=== PATIENT | female | born 1935 | race Hispanic/Latino ===

== ENCOUNTER 2018-03-11 07:35 | Outpatient (CLI) | payer MEDICARE, MEDICAID ==
[2018-03-11 09:45] LABS: Bilirubin Negative (Negative); Blood, Urine Negative (Negative); Clarity CLEAR (Clear); Glucose, Urine (Dipstick) Negative (Negative); Leukocyte Small (Negative); Nitrite Negative (Negative); Protein, Urine (Dipstick) Negative (Neg-Trace); Urobilinogen 0.2 mg/dL (0.2-1.0); pH, Urine 5.5 (5.0-9.0)
[2018-03-11 09:46] LABS: Bacteria/HPF 3+ HPF (None Seen); Hyaline Casts/LPF 0-3 HYALINE CAST LPF (0-3 Hyaline); Pathc Cast-AUWi Flag 0.14 (0-2.49); RBC/HPF 0-3 HPF (0-3); Squamous Epithelial None Seen HPF (0-3)
== END 2018-03-11 07:36 | disposition home or self-care (01) ==
LOC: LABBT 07:35
PROVIDERS: ATTEND Orthopaedic Surgery
DX: Z01.818 Encounter for other preprocedural examination (principal); M17.12 Unilateral primary osteoarthritis, left knee
CPT/HCPCS: 81001; 87077; 87081; 87086; 93005; 93010

== ENCOUNTER 2018-03-22 07:05 | Inpatient (IN) | payer MEDICARE, MEDICAID ==
--- NOTE | 2018-03-18 09:40 | HP ---
HISTORY OF PRESENT ILLNESS: The patient is an 83-year-old female with a long history of progressive degenerative arthritis of the left knee, which have become much worse over the past 5-6 months. Ther e has been no injury. She has had progressive symptoms despite rest, restriction of activities, use of anti-inflammatory medication. Pain is now interfering with day to day activities, including walki ng, getting dressed, and sleeping. She has also had previous injections without relief. She has had previous right total [place] [address] Sandoval with good results. PAST MEDICAL HISTORY: The patient has a history of high blood pressure and high cholesterol. She wa s found on preoperative laboratory to have a urinary tract infection secondary to E. coli and has bee n treated with Macrodantin. CURRENT MEDICATIONS: Include amitriptyline, amlodipine, benazepril, Colace, hydrocodone, pravastatin , tramadol. ALLERGIES: She has no known allergies. FAMILY HISTORY/SOCIAL HISTORY/REVIEW OF SYSTEMS: Otherwise unremarkable. The patient lives with her son. PHYSICAL EXAMINATION: GENERAL: Reveals a healthy elderly female. HEENT: Unremarkable. NECK: Supple. CHEST: Clear. HEART: Regular rate and rhythm. ABDOMEN: Soft, nontender. PELVIC/RECTAL/BREAST: Exams are deferred. EXTREMITIES: Pertinent findings are related to the left knee. There is moderate varus deformity. T here is no effusion. There is tenderness and crepitus over the medial joint line. There is 1+ valgu s laxity at 30 degrees of flexion. Range of motion is 5-115 degrees. Pulses are 2+. There is a lef t antalgic gait. Neurovascular exam is intact. LABORATORY AND X-RAY FINDINGS: X-rays of the left knee performed at [facility] reveal bone on bon e collapse medially. IMPRESSION: 1. Degenerative arthritis, left knee. 2. History of hypertension. 3. History of urinary tract infection present prior to admission secondary to Escherichia coli, geraldine nelly with Macrodantin. PLAN: Left total knee replacement. The nature of the surgery, length of recovery, and potential com plications such as infection, loss of motion, incomplete relief, delayed wound healing, neurovascular injury, thromboembolic phenomena, possible transfusion, and need for revision have been discussed in detail with the patient and her family.
[2018-03-22] MEDS ORDERED: Fentanyl 100 MCG/2 ML VIAL ONE ×3 (08:15→12:07)
[2018-03-22] MEDS ORDERED: Midazolam HCl 2 mg/2 ml Vial ONE (08:15)
[2018-03-22] MEDS ORDERED: CEFAZOLIN/Water 2 GM/20 ML SYRINGE ONE (08:16)
[2018-03-22] MEDS ORDERED: Sodium Chloride 0.9% 100 ML ONE (08:17)
[2018-03-22] MEDS ORDERED: Promethazine HCl 25 MG/ML VIAL IM PRN ×2 (09:13→10:15)
[2018-03-22] MEDS ORDERED: Ondansetron HCl/PF 4 MG/2 ML Vial IVP PRN ×3 (09:13→12:54)
[2018-03-22] MEDS ORDERED: Fentanyl 100 MCG/2 ML VIAL IV PRN (09:13)
[2018-03-22] MEDS ORDERED: Zolpidem Tartrate 5 MG TAB PO PRN ×2 (09:13→12:54)
[2018-03-22] MEDS ORDERED: traMADol HCl 50 MG TAB PO PRN ×3 (09:13→12:54)
[2018-03-22] MEDS ORDERED: HYDROcodone/Acetaminophen 7.5/325 mg Tablet PO PRN (09:14)
[2018-03-22] MEDS ORDERED: Bupivacaine/Epinephrine 0.25% 30 ML VIAL ONE (09:18)
[2018-03-22] MEDS ORDERED: Promethazine HCl 25 MG/ML VIAL SLOW IVP PRN ×2 (10:15→12:54)
[2018-03-22] MEDS ORDERED: Ropivacaine 0.5% HCl/PF (150 MG/30 ML VIAL) ONE (11:09)
[2018-03-22] MEDS ORDERED: Bupivacaine 0.25% HCL 30 ML VIAL ONE (11:09)
[2018-03-22] MEDS ORDERED: Tranexamic Acid 1,000 MG in Sodium Chloride 0.9% 100 ML IVPB SCH (11:45)
--- NOTE | 2018-03-22 11:48 | OP ---
DATE OF PROCEDURE: 03/22/2018 PREOPERATIVE DIAGNOSIS: End-stage tricompartmental osteoarthritis, left knee. POSTOPERATIVE DIAGNOSIS: End-stage tricompartmental osteoarthritis, left knee. OPERATIVE PROCEDURE: Cemented cruciate-sparing computer-assisted navigated left total knee arthropla sty. SURGEON: Jacek Epstein M.D. HR PAYROLL COORDINATOR: Omar Motta PA-C. ANESTHESIA: General via laryngeal mask airway augmented with indwelling femoral block, single shot s ciatic block. 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 TOURNIQUET TIME: 68 minutes. ESTIMATED BLOOD LOSS: Less than 100. COMPONENTS USED: [employer] Triathlon primary size 3 cemented cruciate-sparing femoral comp onent, size 3 cemented primary universal tibial baseplate, a 9 mm polyethylene fixed bearing insert, and 27 mm patellar button. INDICATIONS FOR SURGERY: Ms. Conn is an 83-year-old female who has had progressive left kn ee pain amplified with standing and walking for the last 5-7 years. She has failed conservative carter gement and elected to proceed with total knee arthroplasty as a definitive treatment of her pain. PROCEDURE IN DETAIL: After informed consent was obtained in the preoperative holding area. The brennen ent was taken to the operative suite where general anesthesia was induced. Once adequate level of ge neral anesthesia was obtained, the patient was positioned and a well-padded tourniquet was placed jennifer und the left proximal thigh. The left lower extremity was then prepped and draped in the usual steri le fashion. Prior to exsanguination, a time out was called and all members of the surgical team agre ed upon site, surgeon, and patient. The extremity was then exsanguinated and the tourniquet was rais ed. A midline longitudinal incision was then made directly over the patella extending two fingerbrea dths above the superior pole of the patella and two fingerbreadths inferior to the inferior patellar pole of the patella. Deeper subcutaneous layers were dissected sharply and local bleeding was contro lled with Bovie electrocautery. A quad tendon longitudinal split was then made sharply and a median parapatellar arthrotomy was carried out both sharp and with Bovie electrocautery, carried down to one fingerbreadth medial to the tibial tubercle. The knee was then placed into flexion and the patella was everted nicely, and a copious fat pad ectomy was performed allowing for greater exposure of the t ibia. The computer-assisted distal femoral fiducial was then placed and pinned firmly, and the dista l femoral cutting guide was pinned firmly into place. The oscillating saw was then used to remove th e appropriate amount of bone. The 4-in-1 cutting block was then placed on the distal femur and the o scillating saw was used to remove the appropriate amount of bone off of the anterior, posterior, and chamfer cuts. After completion of bone cuts, the anterior cruciate ligament was resected sharply and the posterior cruciate ligament retractor was placed and the tibia was subluxed for better exposure. Partial meniscectomies were carried out, and the tibial computer-assisted fiducial was pinned, and the cutting guide was placed. Oscillating saw was then used to remove the bone with Hohmann retracto rs used to take care and protect the collateral ligaments. After the tibial resection was performed, a laminar chief investigator was placed in between the freshened bone cuts. The knee placed at 90 degrees and further bilateral meniscectomies were carried out, and the curved osteotome and curettage was used t o remove any excess bone spurs in the posterior compartment. The trial femoral component, tibial bas eplate were placed with the appropriate polyethylene trial insert with an appropriate polyethylene sp acer and patellar button. The knee was taken through full range of motion with flexion and extension from 0-90 degrees and patellar broach squarely in the trochlea without any squinting or subluxation noted. The knee was also stable to varus and valgus stressing at 0, 15, 45, and 90 degrees of flexio n. The drawer was negative. All trial components were then removed and the keel punch was used to p rovide the appropriate defect in the tibia with a mallet. The freshened bone cuts were copiously irr igated with pulsatile lavage of about 1-1/2 liters to remove all excess debris. The freshened bone c uts were then dried and with suction and lap sponge. The knee was placed in flexion and retractors w ere placed to provide access to all bone cuts. Tobramycin impregnated methyl methacrylate cement was then placed on the freshened bone cuts and implants which were malleted firmly into place. Curettag e and [place] elevators were used to remove any excess bone cement. The knee was placed into full exte nsion and the patellar button was placed under compression, and the cement was allowed to cure. Once completed, the components were again taken through full range of motion and copious irrigation of th e knee was carried out with another liter of normal saline. All components were inspected fully with full range of motion and varus and valgus stressing. There was no laxity noted and full extension wa s observed clinically. Primary closure was accomplished with #2 interrupted Vicryl stitch of the art hrotomy defect. This was oversewn with a #2 running Quill barbed stitch. The subcutaneous layer was then closed with a running 0 barbed Monocryl stitch and skin closure accomplished with a running sub cuticular 3-0 Monocryl barbed Quill stitch and augmented with cement on the skin. Tourniquet was low ered. Good spontaneous return of distal pulses was noted clinically and a sterile dressing was appli ed to the incision. The procedure was terminated without any complications. The patient was awakene d in the operative suite and taken to the recovery room in stable condition.
[2018-03-22] MEDS ORDERED: Promethazine HCl 25 MG/ML VIAL ONE (12:00)
[2018-03-22] MEDS ORDERED: Multivitamin W/ Minerals 1 TAB PO SCH ×2 (12:54→13:15)
[2018-03-22] MEDS ORDERED: diphenhydrAMINE 25 MG CAP PO PRN (12:54)
[2018-03-22] MEDS ORDERED: Ferrous Gluconate 324 MG TAB PO SCH ×2 (12:54→13:00)
[2018-03-22] MEDS ORDERED: Fentanyl 100 MCG/2 ML VIAL SLOW IVP PRN (12:54)
[2018-03-22] MEDS ORDERED: HYDROcodone/Acetaminophen 5/325 mg Tablet PO PRN ×2 (12:54)
[2018-03-22] MEDS ORDERED: Lisinopril 20 MG TAB PO SCH ×2 (12:54→13:00)
[2018-03-22] MEDS ORDERED: Aspirin 81 mg Enteric Coated Tablet PO SCH ×2 (12:54→13:00)
[2018-03-22] MEDS ORDERED: Non-Formulary Item 1 EACH (Hydrochlorothiazide [Hydrochlorothiazide] 12.5 MG) PO SCH (12:54)
[2018-03-22] MEDS ORDERED: Acetaminophen 325 MG TAB PO PRN (12:54)
[2018-03-22] MEDS ORDERED: Senokot S 8.6-50 MG TAB PO SCH ×2 (12:54→13:15)
[2018-03-22] MEDS ORDERED: Hydrochlorothiazide 25 MG TAB PO SCH (13:15)
--- NOTE | 2018-03-22 13:30 | RAD ---
TWO VIEWS OF THE LEFT KNEE: DATE: 03/22/18. PROVIDED CLINICAL HISTORY: Postop. FINDINGS: No comparisons. Postoperative changes of left total knee arthroplasty are demonstrated. Postoperati ve soft tissue gas is seen. No evidence for a fracture or other acute osseous abnormality. IMPRESSION: As above. POS: OFF
[2018-03-22] MEDS ORDERED: Lidocaine 1% PF 5 ML VIAL ONE (14:34)
[2018-03-22] MEDS ORDERED: Ondansetron HCl/PF 4 MG/2 ML Vial ONE (14:34)
[2018-03-22] MEDS ORDERED: PROPOFOL 200 MG/20 ML VIAL ONE (14:34)
[2018-03-22] MEDS ORDERED: PHENYLEPHRINE-NS 100 MCG/ML 10 ML SYRINGE ONE (14:34)
[2018-03-22] MEDS ORDERED: hydrALAZINE 25 MG TAB PO PRN (15:51)
[2018-03-22] MEDS ORDERED: CEFAZOLIN/Water 2 GM/20 ML SYRINGE SLOW IVP SCH (16:00)
[2018-03-22] MEDS: Sodium Chloride 0.9% 1,000 ML IV SCH ×2 (18:06→23:18)
[2018-03-22] MEDS: CEFAZOLIN/Water 2 GM/20 ML SYRINGE SLOW IVP SCH (18:06)
[2018-03-22] MEDS: traMADol HCl 50 MG TAB PO PRN (18:19)
--- NOTE | 2018-03-22 18:42 | CON ---
DATE OF CONSULTATION: 03/22/2018 PRIMARY CARE PHYSICIAN: Callum Hannon MD at [facility] REASON FOR ADMISSION: Elective left total knee replacement. REASON FOR CONSULTATION: Aid in medical management. HISTORY OF PRESENT ILLNESS: Ms. Senia James is a pleasant 83-year-old female who has advanced os teoarthritis of the left knee. She has failed outpatient and conservative treatment for this and has elected to have a left total knee replacement. She is currently postop and has some pressure sensat ion in the leg, but otherwise no complaints. She denies any chest pain or shortness of breath. No h eadaches or dizziness, no lightheadedness. REVIEW OF SYSTEMS: All systems were reviewed and are negative. PAST MEDICAL HISTORY: Significant for hypertension and hypercholesterolemia. PAST SURGICAL HISTORY: She has had a right total knee replacement before as well as glaucoma. ALLERGIES: No known drug allergies. SOCIAL HISTORY: She is a nonsmoker, nondrinker. FAMILY HISTORY: Negative for any inheritable diseases. CURRENT MEDICATIONS: Include, lisinopril 20 mg daily as well as hydrochlorothiazide 12.5 mg daily. PHYSICAL EXAMINATION: GENERAL: She is alert and oriented. She was a bit sleepy. VITAL SIGNS: Blood pressure was 102/66, heart rate 92, respiratory rate of 18, temperature is 97.4. HEENT: Her pupils are equal, round, and reactive. Extraocular muscles are intact. Her sclerae are anicteric. Throat no erythema, no exudates. NECK: No adenopathy, no bruits. LUNGS: Clear to auscultation. There is no wheezing, no rales. CARDIOVASCULAR: She has a normal S1, S2. I do not appreciate an S3 or S4. No murmurs, clicks, or r ubs. ABDOMEN: Soft, positive for bowel sounds. No rebound or guarding. EXTREMITIES: There is no edema. NEUROLOGIC: She is grossly nonfocal. LABORATORY RESULTS: She had lab work done on 03/17/2018. This was reviewed and was essentially nega tive except she had a slightly elevated BUN and creatinine with a BUN being 35 and the creatinine was 1.3. ASSESSMENT AND PLAN: This is a pleasant 83-year-old female who is being admitted for an elective lef t total knee replacement. She is currently postop and has essentially no complaints. Her most recen t blood pressure was normal. I would agree with restarting her antihypertensive medications. We pasha l place her on p.r.n. medication as needed and her pain seems to be adequately controlled and we will be happy to follow along with you.
[2018-03-22] MEDS: Aspirin 81 mg Enteric Coated Tablet PO SCH (19:59)
[2018-03-22] MEDS: Senokot S 8.6-50 MG TAB PO SCH (19:59)
[2018-03-22] MEDS: Ferrous Gluconate 324 MG TAB PO SCH (20:00)
[2018-03-22] MEDS: Bupivacaine 0.5% 50 ML in Sodium Chloride 0.9% 50 ML NERVE BLCK SCH (20:04)
[2018-03-22] MEDS ORDERED: Vancomycin HCl 1 GM in Premix Bag 1 BAG IVPB SCH (21:00)
[2018-03-23] MEDS: CEFAZOLIN/Water 2 GM/20 ML SYRINGE SLOW IVP SCH (02:44)
[2018-03-23 06:08] LABS: Hemoglobin 11.2 g/dL (12.0-16.0); Mean Corpuscular HGB CONC 33.9 g/dL (32.0-36.0); Mean Corpuscular Hemoglobin 30.7 pg (27.0-31.0); Mean Corpuscular Volume 90.7 fL (78.0-98.0); Mean Platelet Volume 8.9 fL (7.4-10.4); Platelet Count 121 thou/uL (130-400); Red Blood Cell (RBC) Count 3.64 mill/uL (4.20-5.40); White Blood Cell (WBC) Count 7.1 thou/uL (4.8-10.8)
[2018-03-23 07:11] VITALS: BMI 24.4
[2018-03-23] MEDS ORDERED: Lisinopril 20 MG TAB PO SCH (09:00)
[2018-03-23] MEDS: Sodium Chloride 0.9% 1,000 ML IV SCH ×2 (09:50→18:53)
[2018-03-23] MEDS: traMADol HCl 50 MG TAB PO PRN (10:07)
[2018-03-23] MEDS: Aspirin 81 mg Enteric Coated Tablet PO SCH ×2 (10:09→21:32)
[2018-03-23] MEDS: Multivitamin W/ Minerals 1 TAB PO SCH (10:09)
[2018-03-23] MEDS: Hydrochlorothiazide 25 MG TAB PO SCH (10:09)
[2018-03-23] MEDS: Senokot S 8.6-50 MG TAB PO SCH ×2 (10:10→21:31)
[2018-03-23] MEDS: Ferrous Gluconate 324 MG TAB PO SCH ×2 (10:10→21:31)
[2018-03-23] MEDS: Bupivacaine 0.5% 50 ML in Sodium Chloride 0.9% 50 ML NERVE BLCK SCH (10:30)
--- NOTE | 2018-03-23 10:59 | PRG ---
DATE OF SERVICE: 03/23/2018 SUBJECTIVE: Senia is an 83-year-old female postop day #1 from a left total knee arthroplast y. Her pain is relatively well controlled. She has no complaints currently. OBJECTIVE: VITAL SIGNS: Temperature 99.0, pulse 92, respiratory rate 18, blood pressure 138/84. GENERAL: She is alert and oriented to person, place, time, and situation. Grossly nonfocal appropri ate with examiner. EXTREMITIES: Her left lower extremity is neurovascularly intact. There is no strike through at the incision. Hemoglobin and hematocrit 11.2 and 33.0. ASSESSMENT: 1. An 83-year-old female postop day #1 left total knee arthroplasty, doing well. 2. Mild postoperative hemorrhagic anemia. PLAN: Continue current care and discharge home tomorrow.
[2018-03-23] MEDS: HYDROcodone/Acetaminophen 7.5/325 mg Tablet PO PRN ×2 (13:12→21:36)
--- NOTE | 2018-03-23 14:20 | PDOC.PN ---
- Subjective Encounter Start Date: 03/23/18 Encounter Start Time: 11:00 Subjective: pt up in chair with family at bedside complains of pain to her left knee - Objective Vital Signs & Weight: Vital Signs (12 hours) Temp Pulse Resp BP BP Pulse Ox 03/23/18 13:14 101 H 174/97 H 03/23/18 12:37 100 191/78 H 03/23/18 11:50 98.2 F 100 16 185/81 H 93 L 03/23/18 10:10 138/84 03/23/18 08:10 99.0 F 92 18 138/84 94 L 03/23/18 07:12 98.7 F 95 17 94 L 03/23/18 03:23 98.7 F 95 17 107/57 L 94 L Weight Admit Weight 125 lb Weight 125 lb I&O: 03/22/18 03/23/18 03/24/18 06:59 06:59 06:59 Intake Total 1050 Output Total 1050 Balance 0 Result Diagrams: 03/23/18 05:41 Phys Exam - Physical Examination HEENT: PERRLA, moist MMs, sclera anicteric, TM's clear, oral pharynx no lesions , 2+ tonsils Neck: no nodes, no JVD, supple, full ROM Respiratory: no wheezing, no rales, no rhonchi, wheezing present, clear to auscultation bilateral Cardiovascular: RRR, no significant murmur, no rub, gallop, irregular Gastrointestinal: soft, non-tender, no distention, positive bowel sounds left knee dressing intact, pedal pulse present to lower ext Neurological: non-focal, normal sensation, moves all 4 limbs Dx/Plan (1) Hypertension Code(s): I10 - ESSENTIAL (PRIMARY) HYPERTENSION Status: Acute (2) Status post left knee replacement Code(s): Z96.652 - PRESENCE OF LEFT ARTIFICIAL KNEE JOINT Status: Acute - Plan will increase her lisinopril to bid. pt is complainig of pain elevated bp -: most likely due to pain. pt on stool softners * . Review of Systems - Review of Systems Eyes: negative: Pain, Vision Change, Conjunctivae Inflammation, Eyelid Inflammation, Redness, Other ENT: negative: Ear Pain, Ear Discharge, Nose Pain, Nose Discharge, Nose Congestion, Mouth Pain, Mouth Swelling, Throat Pain, Throat Swelling, Other Respiratory: negative: Cough, Dry, Shortness of Breath, Hemoptysis, SOB with Excertion, Pleuritic Pain, Sputum, Wheezing Cardiovascular: negative: chest pain, palpitations, orthopnea, paroxysmal nocturnal dyspnea, edema, light headedness, other Gastrointestinal: negative: Nausea, Vomiting, Abdominal Pain, Diarrhea, Constipation, Melena, Hematochezia, Other Genitourinary: negative: Dysuria, Frequency, Incontinence, Hematuria, Retention , Other Musculoskeletal: Other (knee pain) - Medications/Allergies Allergies/Adverse Reactions: Allergies Allergy/AdvReac Type Severity Reaction Status Date / Time No Known Allergies Allergy Verified 03/11/18 08:32 Medications: Current Medications Acetaminophen (Tylenol) 650 mg PO Q4H PRN PRN Reason: SANTIAGO/ T > 101F; Mild Pain (1-3) Hydrocodone Bitart/Acetaminophen ([place] 7.5/325) 1 tab PO Q4H PRN PRN Reason: Mild Pain (1-3) Last Admin: 03/23/18 13:12 Dose: 1 tab Hydrocodone Bitart/Acetaminophen ([place] 7.5/325) 2 tab PO Q4H PRN PRN Reason: Moderate Pain (4-6) Aspirin (Ecotrin) 81 mg PO BID [facility] Last Admin: 03/23/18 10:09 Dose: 81 mg Diphenhydramine HCl (Benadryl) 25 mg PO Q6H PRN PRN Reason: Itching Fentanyl (Sublimaze) 50 mcg IV Q1H PRN PRN Reason: BREAKTHROUGH PAIN Ferrous Gluconate (Fergon) 324 mg PO BID [facility] Last Admin: 03/23/18 10:10 Dose: 324 mg Hydralazine HCl (Apresoline) 25 mg PO TID PRN PRN Reason: SBP Greater Than 170 Last Admin: 03/23/18 12:37 Dose: 25 mg Hydrochlorothiazide (Hydrochlorothiazide) 12.5 mg PO DAILY [facility] Last Admin: 03/23/18 10:09 Dose: 12.5 mg Bupivacaine HCl 50 ml/ Sodium (Chloride) 100 mls @ 0 mls/hr NERVE BLCK INF [facility] PRN Reason: As Directed Last Admin: 03/23/18 10:30 Dose: 100 mls Sodium Chloride (Normal Saline 0.9%) 1,000 mls @ 100 mls/hr IV .Q10H [facility] Last Admin: 03/23/18 09:50 Dose: Not Given Iron/Minerals/Multivitamins (Theragran M) 1 tab PO DAILY [facility] Last Admin: 03/23/18 10:09 Dose: 1 tab Lisinopril (Zestril) 20 mg PO BID [facility] Ondansetron HCl (Zofran) 4 mg IVP Q6H PRN PRN Reason: Nausea/Vomiting Promethazine HCl (Phenergan) 12.5 mg IM Q4H PRN PRN Reason: Nausea Promethazine HCl (Phenergan) 12.5 mg SLOW IVP Q4H PRN PRN Reason: Nausea/Vomiting Senna/Docusate Sodium (Senokot S) 2 tab PO BID [facility] Last Admin: 03/23/18 10:10 Dose: Not Given Sodium Chloride (Flush - Normal Saline) 10 ml IVF PRN PRN PRN Reason: Saline Flush Sodium Chloride (Flush - Normal Saline) 10 ml IVF Q12HR [facility] Last Admin: 03/23/18 10:12 Dose: 10 ml Tramadol HCl (Ultram) 50 mg PO Q6H PRN PRN Reason: Mild Pain (1-3) Last Admin: 03/23/18 10:07 Dose: 50 mg Tramadol HCl (Ultram) 100 mg PO Q6H PRN PRN Reason: Moderate Pain 4-6 Zolpidem Tartrate (Ambien) 5 mg PO HSPRN PRN PRN Reason: Insomnia
[2018-03-23] MEDS: Lisinopril 20 MG TAB PO SCH (21:31)
[2018-03-24] MEDS: Bupivacaine 0.5% 50 ML in Sodium Chloride 0.9% 50 ML NERVE BLCK SCH (00:21)
[2018-03-24] MEDS: Sodium Chloride 0.9% 1,000 ML IV SCH ×2 (03:21→09:31)
[2018-03-24] MEDS: HYDROcodone/Acetaminophen 7.5/325 mg Tablet PO PRN (08:31)
[2018-03-24] MEDS: Senokot S 8.6-50 MG TAB PO SCH (08:32)
[2018-03-24] MEDS: Hydrochlorothiazide 25 MG TAB PO SCH (08:32)
[2018-03-24] MEDS: Ferrous Gluconate 324 MG TAB PO SCH (08:32)
[2018-03-24] MEDS: Multivitamin W/ Minerals 1 TAB PO SCH (08:32)
[2018-03-24] MEDS: Lisinopril 20 MG TAB PO SCH (08:33)
[2018-03-24] MEDS: Aspirin 81 mg Enteric Coated Tablet PO SCH (08:33)
[2018-03-24 12:07] VITALS: BP 133/86; TEMP 98.1
--- NOTE | 2018-03-24 16:46 | PDOC.PN ---
- Subjective Encounter Start Date: 03/24/18 Encounter Start Time: 11:45 Subjective: pt up in bed feels much better today - Objective Vital Signs & Weight: Vital Signs (12 hours) Temp Pulse Resp BP BP Pulse Ox 03/24/18 12:06 98.1 F 84 20 133/86 94 L 03/24/18 08:33 147/80 H 03/24/18 08:30 97.4 F L 92 14 95 03/24/18 08:05 97.4 F L 92 14 147/80 H 95 Weight Admit Weight 125 lb Weight 125 lb I&O: 03/23/18 03/24/18 03/25/18 06:59 06:59 06:59 Intake Total 1050 1140 0 Output Total 1050 1050 Balance 0 90 0 Result Diagrams: 03/23/18 05:41 Phys Exam - Physical Examination HEENT: PERRLA, moist MMs, sclera anicteric, TM's clear, oral pharynx no lesions , 2+ tonsils Neck: no nodes, no JVD, supple, full ROM Respiratory: no wheezing, no rales, no rhonchi, wheezing present, clear to auscultation bilateral Cardiovascular: RRR, no significant murmur, no rub, gallop, irregular Gastrointestinal: soft, non-tender, no distention, positive bowel sounds mild edema to left knee area Dx/Plan (1) Hypertension Code(s): I10 - ESSENTIAL (PRIMARY) HYPERTENSION Status: Acute (2) Status post left knee replacement Code(s): Z96.652 - PRESENCE OF LEFT ARTIFICIAL KNEE JOINT Status: Acute - Plan posible discharge today. -: pt feels well today and bp controlled * . Review of Systems - Review of Systems ENT: negative: Ear Pain, Ear Discharge, Nose Pain, Nose Discharge, Nose Congestion, Mouth Pain, Mouth Swelling, Throat Pain, Throat Swelling, Other Respiratory: negative: Cough, Dry, Shortness of Breath, Hemoptysis, SOB with Excertion, Pleuritic Pain, Sputum, Wheezing Cardiovascular: negative: chest pain, palpitations, orthopnea, paroxysmal nocturnal dyspnea, edema, light headedness, other Gastrointestinal: negative: Nausea, Vomiting, Abdominal Pain, Diarrhea, Constipation, Melena, Hematochezia, Other - Medications/Allergies Allergies/Adverse Reactions: Allergies Allergy/AdvReac Type Severity Reaction Status Date / Time No Known Allergies Allergy Verified 03/11/18 08:32
--- NOTE | 2018-03-25 14:11 | DIS ---
DISCHARGE DISPOSITION: To home. ADMISSION DIAGNOSIS: End-stage tricompartmental osteoarthritis, left knee. DISCHARGE DIAGNOSIS: End-stage tricompartmental osteoarthritis, left knee. OPERATIVE PROCEDURE: Left total knee arthroplasty. CONSULTANTS: [facility] for acute postop pain management, [facility] for m edical management. BRIEF CLINICAL HISTORY: The patient was admitted to [facility] and underwent the above elective procedure on the date of admission without intra, kennedi, or postoperative complicat ion. The hospital course was unremarkable. At the time of discharge, the patient is afebrile, ambul atory without assistance utilizing a rolling walker in a full weightbearing fashion, tolerating a reg ular diet, and voiding without difficulty. The patient's incision is clean and closed without any er ythema. DISCHARGE MEDICATIONS: Please see medication reconciliation form. We will be happy to see the patient on an as needed basis between now and her next scheduled appointm ent. CONDITION ON DISCHARGE: Stable. PROGNOSIS: Good.
== END 2018-03-24 14:35 | disposition home or self-care (01) | DRG 470 ==
LOC: SDC 07:05 → SJJU 12:40
PROVIDERS: ADMIT Orthopaedic Surgery; ATTEND Orthopaedic Surgery
PROC: 0SRD0J9 Replacement of Left Knee Joint with Synthetic Substitute, Cemented, Open Approach (ICD-10-PCS; principal; 2018-03-22)
PROC: 8E0YXBZ Computer Assisted Procedure of Lower Extremity (ICD-10-PCS; 2018-03-22)
DX: M17.12 Unilateral primary osteoarthritis, left knee (principal); D62 Acute posthemorrhagic anemia; I10 Essential (primary) hypertension
CPT/HCPCS: 36415; 85027; A4216; C1713; C1776; G8978-GP-CM; G8979-GP-CJ; J2001; J2250; J2405; J2550; J2704; J2795; J3010; J3370; J3490; J7050; S0020